=== PATIENT | female | born 1975 | race African-American/Black ===

== ENCOUNTER 2023-06-26 13:15 | Emergency (ER) | payer MEDICAID ==
[~2023-06-26] VITALS: Ht 165.1 cm; Wt 64.0 kg
[2023-06-26 13:31] VITALS: BP 130/72; PULSE 110; RESP 18; TEMP 98.4; O2SAT 95
== END 2023-06-26 14:20 | disposition left against medical advice (07) ==
LOC: ER 13:15
DX: R51.9 Headache, unspecified (principal); Z53.21 Procedure and treatment not carried out due to patient leaving prior to being seen by health care provider
CPT/HCPCS: 99281

== ENCOUNTER 2024-11-05 21:53 | Emergency (ER) | payer MEDICAID ==
[~2024-11-05] VITALS: Ht 165.1 cm; Wt 69.0 kg
[2024-11-05 21:55] VITALS: BP 133/84; PULSE 92; RESP 16; TEMP 37.1; O2SAT 100
[2024-11-06] MEDS: IBUPROFEN 600MG TABLET PO STA (01:51)
[2024-11-06] MEDS ORDERED: ACET-2708 PO (02:25)
== END 2024-11-06 02:36 | disposition home or self-care (01) ==
LOC: ER 21:53
DX: B34.9 Viral infection, unspecified (principal); D64.9 Anemia, unspecified; F15.90 Other stimulant use, unspecified, uncomplicated
CPT/HCPCS: 71045; 99283